=== PATIENT | male | born 1950 | race Caucasian/White ===

== ENCOUNTER 2021-05-13 15:19 | Emergency (ER) | payer OTHER ==
[~2021-05-13] VITALS: Ht 172.7 cm; Wt 70.0 kg
[~2021-05-13 15:19] MED LIST: CLEOCIN150 MG PO; DILT-XR180 MG PO; NASONEX50 MCG/AC NAB; TYLENOL 500MG TAB PO; XARELTO10 MG PO
[2021-05-13 16:13] LABS: HEMATOCRIT 47.5 % (39.0-50.0); IMMATURE GRANULOCYTES 0.1 % (0.0-5.0); MEAN CELL VOLUME 98.8 fL CALC (80.0-100.0); MEAN CORPUSCULAR HGB 31.2 pG CALC (26.0-32.0); MEAN CORPUSCULAR HGB CONC 31.6 g/dL CAL (32.0-36.0); NEUT# 12.21 thou/uL (1.82-7.42); RED BLOOD COUNT 4.81 mill/uL (4.70-6.10); RED CELL DISTRI WIDTH 12.6 % (11.5-15.5)
[2021-05-13 16:15] LABS: GFR > 60 ML/MIN (>=60 (CALC)); GFR FOR AFR.AMER. > 60 ML/MIN (>=60 (CALC))
[2021-05-13 16:26] LABS: ALBUMIN 4.6 g/dL (3.2-5.0); ALKALINE PHOSPHATASE 91 u/l (38-126); ANION GAP 15 (6-22 (CALC)); BILIRUBIN, TOTAL 1.4 mg/dL (0.0-1.4); BUN 15 mg/dL (8-23); BUN/CREATININE RATIO 13 (12-20 (CALC)); CARBON DIOXIDE 27 mmol/l (22-30); CHLORIDE 101 mmol/l (95-108); CREATININE 1.1 mg/dL (0.7-1.3); GFR > 60 ML/MIN (>=60 (CALC)); GFR FOR AFR.AMER. > 60 ML/MIN (>=60 (CALC)); SGOT/AST 30 u/l (19-48); SODIUM 139 mmol/l (137-146); TOTAL PROTEIN 8.2 g/dL (6.3-8.2)
[2021-05-13 17:00] VITALS: BP 143/91
[2021-05-13] MEDS ORDERED: FLOXIN OTIC0.3 % AS (18:06)
[2021-05-13] MEDS ORDERED: TRAMADOL HYDROC50 M1 PO (18:06)
[2021-05-13] MEDS ORDERED: ONDANSETRON4 MG PO (18:06)
[2021-05-13] MEDS ORDERED: LEVAQUIN750 M1 PO (18:06)
== END 2021-05-13 19:10 | disposition home or self-care (01) | DRG 156 ==
LOC: ED 15:19
PROVIDERS: Family Medicine
DX: H60.12 Cellulitis of left external ear (principal); J45.909 Unspecified asthma, uncomplicated; I48.91 Unspecified atrial fibrillation; E78.5 Hyperlipidemia, unspecified; Z20.822 Contact with and (suspected) exposure to COVID-19

== ENCOUNTER 2023-05-14 16:34 | Emergency (ER) | payer OTHER ==
[~2023-05-14] VITALS: Ht 172.7 cm; Wt 70.0 kg
[~2023-05-14 16:34] MED LIST changes: +FLOXIN OTIC0.3 % AS; +LEVAQUIN750 M1 PO; +ONDANSETRON4 MG PO; +TRAMADOL HYDROC50 M1 PO
[2023-05-14] MEDS ORDERED: NEOMYCIN-BACITRACIN-POLYMYXIN 0.5 GM/PAK PAK TOP ONE (17:00)
[2023-05-14] MEDS ORDERED: Diph, Acellular Pertussis, Tet 0.5 ML/VIAL (Tdap) SDV IM ONE (17:00)
[2023-05-14] MEDS ORDERED: LIDOcaine HCl 1% (Local Anesth.) 20 ML VIAL STI STA (17:00)
[2023-05-14] MEDS ORDERED: SODIUM CHLORIDE 1,000 ML BTL IR ONE (17:00)
[2023-05-14] MEDS ORDERED: POVIDONE IODINE 0.5 OZ/BTL TOP ONE (17:00)
[2023-05-14] MEDS ORDERED: KEFLEX500 MG PO ×2 (18:12→18:14)
[2023-05-14 18:39] VITALS: BP 180/111
== END 2023-05-14 18:40 | disposition home or self-care (01) | DRG 605 ==
LOC: ED 16:34
PROC: 0HQLXZZ Repair Left Lower Leg Skin, External Approach (ICD-10-PCS; principal; 2023-05-14)
DX: S81.812A Laceration without foreign body, left lower leg, initial encounter (principal); I10 Essential (primary) hypertension; I48.91 Unspecified atrial fibrillation; E78.5 Hyperlipidemia, unspecified; W22.8XXA Striking against or struck by other objects, initial encounter; Y93.53 Activity, golf; Y92.39 Other specified sports and athletic area as the place of occurrence of the external cause; Z79.01 Long term (current) use of anticoagulants